=== PATIENT | female | born 2000 | race Caucasian/White ===

== ENCOUNTER 2021-12-11 22:33 | Emergency (ER) | payer MEDICAID ==
[~2021-12-11 22:33] MED LIST: AZIT250T12 PO
[2021-12-11 22:50] VITALS: BP 128/65
--- NOTE | 2021-12-11 23:01 | ED GU-Female ---
General Chief Complaint: OB < 20 WEEKS Stated Complaint: STOMACH PAIN OVIDIO 4 MONTHS Source: patient Exam Limitations: no limitations History of Present Illness Date Seen by Provider: Dec 11, 2021 Time Seen by Provider: 23:01 Initial Comments Patient is a 21-year-old female who presents to the emergency room referred from [facility] chief complaint of lower pelvic pain onset today. She reportedly had a positive test at home 2 or 3 days ago, went to [facility] for the pain this evening and also had a positive test. Patient cannot recall her last menstrual cycle. She thinks she had one last month. She seems significantly mentally impaired. Gives me multiple blank stares when asked questions and looks to her friend for answers. She has not taken anything for the pain. Nothing makes it any better or any worse. She denies nausea or vomiting. No diarrhea. She states she is not having any vaginal bleeding currently. I did ask her if she was still having pain she said no but when I went to palpate the abdomen she told me she was having pain in the suprapubic region. She cannot tell me if her menstrual cycles are regular or not. No prior abdominal surgeries. She tells me she is allergic to secondhand smoke, but does smoke herself. [facility] told her she needed an ultrasound today. All other review of systems reviewed and negative except as stated Timing/Duration: this evening Severity/Quality: mild Location: suprapubic Radiation: none Activities at Onset: none Prior Genitourinary Problems: none Associated Symptoms: denies symptoms Allergies and Home Medications Allergies Coded Allergies: No Known Drug Allergies (Unverified , 07/12/16) Patient Home Medication List Home Medication List Reviewed: Yes Azithromycin (Azithromycin) 250 Mg Tablet, 250 MG PO UD Prescribed by: RAFAEL DUBOIS on 07/12/16 8884 Review of Systems Review of Systems Constitutional: see HPI EENTM: no symptoms reported Respiratory: no symptoms reported Cardiovascular: no symptoms reported Gastrointestinal: no symptoms reported : Yes Musculoskeletal: no symptoms reported Skin: no symptoms reported Psychiatric/Neurological: No Symptoms Reported All Other Systemes Reviewed Negative Unless Noted: Yes Past Kcvmdvv-Vlonmn-Asoqhk Hx Seasonal Allergies Seasonal Allergies: No Past Medical History Reproductive Disorders: No Physical Exam Vital Signs Vital Signs - First Documented 12/11/21 22:50 Temp 36.9 Pulse 83 Resp 18 B/P (MAP) 128/65 (86) Pulse Ox 100 O2 Delivery Room Air Capillary Refill : Height, Weight, BMI Height: 4'9" Weight: 120lbs. oz. 54.074451ev; 25.96 BMI Method:Stated General Appearance: WD/WN, no apparent distress HEENT: PERRL/EOMI Cardiovascular: regular rate, rhythm Respiratory: lungs clear, normal breath sounds, no respiratory distress, no accessory muscle use Gastrointestinal: soft, tenderness (suprapubic) Extremities: normal range of motion, non-tender, normal inspection, no pedal edema, no calf tenderness, normal capillary refill Neurologic/Psychiatric: alert, normal mood/affect, oriented x 3 Skin: normal color, warm/dry Progress/Results/Core Measures Suspected Sepsis SIRS Temperature: Pulse: Respiratory Rate: Laboratory Tests 12/11/21 23:21: White Blood Count 18.3H Blood Pressure / Mean: Laboratory Tests 12/11/21 23:21: Creatinine 0.68, Platelet Count 299 Results/Orders Lab Results Laboratory Tests Test 12/11/21 22:56 12/11/21 23:21 Range/Units Urine Color YELLOW Urine Clarity CLEAR Urine pH 6.0 5-9 Urine Specific [place] >=1.030 1.016-1.022 Urine Protein NEGATIVE NEGATIVE Urine Glucose (UA) NEGATIVE NEGATIVE Urine Ketones NEGATIVE NEGATIVE Urine Nitrite NEGATIVE NEGATIVE Urine Bilirubin NEGATIVE NEGATIVE Urine Urobilinogen 0.2 < = 1.0 MG/DL Urine Leukocyte Esterase NEGATIVE NEGATIVE Urine RBC (Auto) NEGATIVE NEGATIVE Urine RBC NONE /HPF Urine WBC RARE /HPF Urine Squamous Epithelial Cells 0-2 /HPF Urine Crystals NONE /LPF Urine Bacteria TRACE /HPF Urine Casts NONE /LPF Urine Mucus SMALL H /LPF Urine Culture Indicated NO White Blood Count 18.3 H 4.3-11.0 10^3/uL Red Blood Count 3.54 L 3.80-5.11 10^6/uL Hemoglobin 11.6 11.5-16.0 g/dL Hematocrit 33 L 35-52 % Mean Corpuscular Volume 94 80-99 fL Mean Corpuscular Hemoglobin 33 25-34 pg Mean Corpuscular Hemoglobin Concent 35 32-36 g/dL Red Cell Distribution Width 12.9 10.0-14.5 % Platelet Count 299 130-400 10^3/uL Mean Platelet Volume 11.0 9.0-12.2 fL Immature Granulocyte % (Auto) 0 % Neutrophils (%) (Auto) 67 42-75 % Lymphocytes (%) (Auto) 23 12-44 % Monocytes (%) (Auto) 9 0-12 % Eosinophils (%) (Auto) 1 0-10 % Basophils (%) (Auto) 0 0-10 % Neutrophils # (Auto) 12.2 H 1.8-7.8 10^3/uL Lymphocytes # (Auto) 4.2 H 1.0-4.0 10^3/uL Monocytes # (Auto) 1.6 H 0.0-1.0 10^3/uL Eosinophils # (Auto) 0.1 0.0-0.3 10^3/uL Basophils # (Auto) 0.1 0.0-0.1 10^3/uL Immature Granulocyte # (Auto) 0.1 0.0-0.1 10^3/uL Neutrophils % (Manual) 75 % Lymphocytes % (Manual) 15 % Monocytes % (Manual) 5 % Eosinophils % (Manual) 0 % Basophils % (Manual) 0 % Band Neutrophils 0 % Reactive Lymphocytes 5 % Blood Morphology Comment NORMAL Sodium Level 134 L 135-145 MMOL/L Potassium Level 3.5 L 3.6-5.0 MMOL/L Chloride Level 104 98-107 MMOL/L Carbon Dioxide Level 20 L 21-32 MMOL/L Anion Gap 10 5-14 MMOL/L Blood Urea Nitrogen 14 7-18 MG/DL Creatinine 0.68 0.60-1.30 MG/DL Estimat Glomerular Filtration Rate 126 BUN/Creatinine Ratio 21 Glucose Level 99 70-105 MG/DL Calcium Level 9.0 8.5-10.1 MG/DL Human Chorionic Gonadotropin, Quant 78065 H <5 MIU/ML My Orders Orders - NEDRA WEBSTER MD Ed Iv/Invasive Line Start (12/11/21 23:00) Cbc With Automated Diff (12/11/21 23:00) Basic Metabolic Panel (12/11/21 23:00) Urine Bedside (12/11/21 23:00) Ua Culture If Indicated (12/11/21 23:00) Hcg,Quantitative (12/11/21 23:00) Manual Differential (12/11/21 23:21) Vital Signs/I&O 12/11/21 22:50 Temp 36.9 Pulse 83 Resp 18 B/P (MAP) 128/65 (86) Pulse Ox 100 O2 Delivery Room Air Capillary Refill : Progress Note : Time: 00:35 Progress Note I was able to use the ED ultrasound to visualize an IUP. cardiac activity was observed 140s to 150s. Patient is having no vaginal bleeding. I have discussed with her friend at the bedside return precautions. She is going to get her care at [facility]. I have recommended a an [id number]-[id number] vitamin. We will also recommend that she quit smoking. Urine is clean. Rest of her labs are unremarkable except for a leukocytosis which is nonspecific. Departure Impression Primary Impression: Abdominal pain Qualified Codes: R10.30 - Lower abdominal pain, unspecified Additional Impression: Qualified Codes: Z3A.01 - Less than 8 weeks gestation of Disposition: HOME, SELF-CARE Condition: Stable Departure-Patient Inst. Decision time for Depature: 00:36 Referrals: [facility]/Orin SALCIDO,LOCAL PHYSICIAN (PCP) Primary Care Physician Patient Instructions: Abdominal Pain, Adult ED, Symptoms Add. Discharge Instructions: Drink lots of fluids to stay well hydrated - avoid Soda Pop. You need to QUIT smoking. Take an over the counter generic Vitamin every day - at night is the best. Call [facility] tomorrow for an appointment for starting care. Come back to the Emergency Department for vaginal bleeding, worse pain, or any other concerning symptoms. You can take over the counter extra strength tylenol (NOT IBUPROFEN) every 6 hours (2 tablets) for pain. NEDRA WEBSTER MD Dec 11, 2021 23:01
[2021-12-11 23:05] LABS: BILIRUBIN,URINE NEGATIVE (NEGATIVE); CLARITY,URINE CLEAR; COLOR,URINE YELLOW; GLUCOSE, URINE (UA) NEGATIVE (NEGATIVE); KETONES,URINE NEGATIVE (NEGATIVE); LEUKOCYTE ESTERASE ,URINE NEGATIVE (NEGATIVE); NITRITE,URINE NEGATIVE (NEGATIVE); PROTEIN,URINE NEGATIVE (NEGATIVE)
[2021-12-11 23:11] LABS: BACTERIA,URINE TRACE /HPF; SQUAMOUS EPITHELIAL CELL,UR 0-2 /HPF; WBC,URINE RARE /HPF
[2021-12-11 23:28] LABS: BASOPHILS # (AUTO) 0.1 10^3/uL (0.0-0.1); BASOPHILS % (AUTO) 0 % (0-10); EOSINOPHILS # (AUTO) 0.1 10^3/uL (0.0-0.3); EOSINOPHILS % (AUTO) 1 % (0-10); HEMATOCRIT 33 % (35-52); HEMOGLOBIN 11.6 g/dL (11.5-16.0); LYMPHOCYTES # (AUTO) 4.2 10^3/uL (1.0-4.0); LYMPHOCYTES % (AUTO) 23 % (12-44); MEAN CORPUSCULAR HEMOGLOBIN 33 pg (25-34); MEAN CORPUSCULAR HGB CONC 35 g/dL (32-36); MEAN CORPUSCULAR VOLUME 94 fL (80-99); MONOCYTES # (AUTO) 1.6 10^3/uL (0.0-1.0); MONOCYTES % (AUTO) 9 % (0-12); NEUTROPHILS # (AUTO) 12.2 10^3/uL (1.8-7.8); NEUTROPHILS % (AUTO) 67 % (42-75); PLATELET COUNT 299 10^3/uL (130-400); WHITE BLOOD COUNT 18.3 10^3/uL (4.3-11.0)
[2021-12-11 23:39] LABS: BAND NEUTROPHILS 0 %; BASOPHILS % (MANUAL) 0 %; EOSINOPHILS % (MANUAL) 0 %; LYMPHOCYTES % (MANUAL) 15 %; MONOCYTES % (MANUAL) 5 %; NEUTROPHILS % (MANUAL) 75 %; REACTIVE LYMPHOCYTES 5 %
[2021-12-11 23:40] LABS: POTASSIUM 3.5 MMOL/L (3.6-5.0); RBC MORPH NORMAL
[2021-12-11 23:45] LABS: CREATININE SERUM 0.68 MG/DL (0.60-1.30)
== END 2021-12-12 00:46 | disposition home or self-care (01) ==
LOC: EDUNIT# 22:33 → ER 22:38
DX: O26.891 Other specified pregnancy related conditions, first trimester (principal); R10.30 Lower abdominal pain, unspecified; F17.290 Nicotine dependence, other tobacco product, uncomplicated; Z3A.00 Weeks of gestation of pregnancy not specified
CPT/HCPCS: 36415; 80048; 81000; 84702; 84703; 85007; 85027; 99282

== ENCOUNTER 2022-07-28 06:04 | Inpatient (IN) | payer MEDICAID ==
[~2022-07-28] VITALS: Ht 147.5 cm; Wt 63.7 kg
[2022-07-28] VITALS (49 sets, daily range): BP systolic 103–157; BP diastolic 46–94
[2022-07-28] MEDS ORDERED: MINERAL OIL 30 ML UDC TOP PRN (06:30)
[2022-07-28 06:39] LABS: BASOPHILS # (AUTO) 0.1 10^3/uL (0.0-0.1); BASOPHILS % (AUTO) 0 % (0-10); EOSINOPHILS # (AUTO) 0.2 10^3/uL (0.0-0.3); EOSINOPHILS % (AUTO) 1 % (0-10); HEMATOCRIT 32 % (35-52); LYMPHOCYTES # (AUTO) 3.4 10^3/uL (1.0-4.0); LYMPHOCYTES % (AUTO) 20 % (12-44); MEAN CORPUSCULAR HEMOGLOBIN 31 pg (25-34); MEAN CORPUSCULAR HGB CONC 34 g/dL (32-36); MEAN CORPUSCULAR VOLUME 90 fL (80-99); MONOCYTES % (AUTO) 6 % (0-12); NEUTROPHILS # (AUTO) 12.8 10^3/uL (1.8-7.8); NEUTROPHILS % (AUTO) 73 % (42-75); PLATELET COUNT 475 10^3/uL (130-400); WHITE BLOOD COUNT 17.5 10^3/uL (4.3-11.0)
[2022-07-28] MEDS ORDERED: AMPICILLIN FOR IV USE 2,000 MG in NS (IVPB) 50 ML IV SCH (07:00)
[2022-07-28] MEDS: D5 LR IV SOLUTION 1,000 ML IV SCH ×2 (07:43→13:50)
[2022-07-28] MEDS: OXYTOCIN PRE-MIX DRIP 500 ML IV SCH ×4 (08:15→22:33)
--- NOTE | 2022-07-28 08:16 | Labor Progress Note ---
Labor Progress Note Labor Progress Note Date Seen by Provider: Jul 28, 2022 Time Seen by Provider: 08:00 Subjective: Pt denies complaints. Is feeling her contractions but not much pain so far. Objective: Cervical exam: 3.5/80/-2 Consistency: soft Position: anterior Presentation: vertex heart tones: 130 beats per minute, moderate variability, reactive Tocometer: 1-2 ctx/10 minutes Assessment/Plan: Alejandra Solano is a 21 /Para 1/0 ,Gestational Age (wks)39 (days) 6 here for induction of labor due to oligohydramnios and decreased movement. CEFM/TOCO AROM done at time of exam with clear fluid Start pitocin Anesthesia: epidural when desired Anticipate vaginal delivery. Vitals - Labs Vital Signs - I&O Vital Signs Date Time Temp Pulse Resp B/P (MAP) Pulse Ox O2 Delivery O2 Flow Rate FiO2 07/28/22 06:39 36.4 75 18 98 Room Air Labs Laboratory Tests 07/28/22 06:22: White Blood Count 17.5H, Red Blood Count 3.59L, Hemoglobin 11.0L, Hematocrit 32L , Mean Corpuscular Volume 90, Mean Corpuscular Hemoglobin 31, Mean Corpuscular Hemoglobin Concent 34, Red Cell Distribution Width 14.7H, Platelet Count 475H, Mean Platelet Volume 11.0, Immature Granulocyte % (Auto) 1, Neutrophils (%) (Auto) 73, Lymphocytes (%) (Auto) 20, Monocytes (%) (Auto) 6, Eosinophils (%) (Auto) 1, Basophils (%) (Auto) 0, Neutrophils # (Auto) 12.8H, Lymphocytes # (Auto) 3.4, Monocytes # (Auto) 1.0, Eosinophils # (Auto) 0.2, Basophils # (Auto) 0.1, Immature Granulocyte # (Auto) 0.1 RAJEEV RICH MD Jul 28, 2022 08:16
--- NOTE | 2022-07-28 08:18 | History & Physical-OB/GYN ---
JASWANT FREEMAN 07/28/22 0818: OB - Chief Complaint & HPI Date/Time Date of Admission: Date of Admission: Jul 28, 2022 at 06:05 Date seen by a Provider: Jul 28, 2022 Time Seen by a Provider: 07:52 Chief Complaint/History OB-Reason for Admission/Chief: Rupture of Membranes Hx : 1 Hx Para: 0 Expected Date of Delivery: Jul 29, 2022 Gestational Age in Weeks: 39 Gestational Age in Days: 6 Indication for induction: other (US on 07/27 notes Oligohydramnios) History of Labs 02/18/22: A+, antibody neg, RI, HIV/RPR/HepB NR, G/C neg, Chlamydia POS (treated), Trichomonas POS (treated), GBS bacteruria (treated), and elevated risk of DS onpenta screen Allergies and Home Medications Allergies Coded Allergies: No Known Drug Allergies (Unverified , 07/12/16) Patient Home Medication List Home Medication List Reviewed: Yes Azithromycin (Azithromycin) 250 Mg Tablet, 250 MG PO UD Prescribed by: RAFAEL DUBOIS on 07/12/16 5908 OB - History Hx of Present Care: Yes Ultrasounds: Abnormal US findings Abnormal Ultrasound Findings: Oligohydramnios noted on 07/27 Obstetrical Complications: Other (Substance use during , Increased risk for Downs Syndrome on Penta screen, ) Medical Complications: None Other Concerns: Substance use during Increased risk for Downs Syndrome on Penta screen, cell free DNA. Negative for trisomy 21. Abnormal 1 hour GTT and Normal 3 hour GTT Questionable pericardial effusion on US. 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 Obstetrical History Hx : 1 Hx Para: 0 Delivery History Hx Blood Disorders: No Patient Past Medical History ADHD, Cannot read well Social History/Family History Alcohol Use: Denies Use Recreational Drug Use: Yes Smoking Cessation: Current every day smoker 2nd Hand Smoke Exposure: Yes Immunizations Influenza Vaccine Up-to-Date: Yes; Up-to-Date Hepatitis A: Yes Hepatitis B: Yes Tetanus Booster (TDap): Less than 5yrs Rubella: immune RPR/VDRL: Negative GBS Status: Negative HBsAG: Negative OB - Admission Exam Physical Exam Vitals: Vital Signs 07/28/22 06:39 Temp 36.4 Pulse 75 Resp 18 Pulse Ox 98 O2 Delivery Room Air Heart: Rhythm Normal Lungs: Clear Abdomen: Gravid Reflexes: Normal Cervical Dilatation: 3cm Effacement: Other (80%) Heart Rate: 130's Accelerations: Accelerations Present Decelerations: No Decelerations Short Term Variability: Present Devulcanizer Operator Variability: Average (6-25) Contractions on Admission: 6-10 Minutes Apart Mckeon Scoring Tool (Modified) Dilation (cm): 3-4cm (2) Effacement (%): 80-100% (3) Descent/Station: -2 (1) Cervix Consistency: Soft (2) Cervix Position: Anterior (2) Subtract 1 point for: Nulliparity (-1) Mckeon Score: 7 Labs Laboratory Tests Test 07/28/22 06:22 Range/Units White Blood Count 17.5 H 4.3-11.0 10^3/uL Red Blood Count 3.59 L 3.80-5.11 10^6/uL Hemoglobin 11.0 L 11.5-16.0 g/dL Hematocrit 32 L 35-52 % Mean Corpuscular Volume 90 80-99 fL Mean Corpuscular Hemoglobin 31 25-34 pg Mean Corpuscular Hemoglobin Concent 34 32-36 g/dL Red Cell Distribution Width 14.7 H 10.0-14.5 % Platelet Count 475 H 130-400 10^3/uL Mean Platelet Volume 11.0 9.0-12.2 fL Immature Granulocyte % (Auto) 1 % Neutrophils (%) (Auto) 73 42-75 % Lymphocytes (%) (Auto) 20 12-44 % Monocytes (%) (Auto) 6 0-12 % Eosinophils (%) (Auto) 1 0-10 % Basophils (%) (Auto) 0 0-10 % Neutrophils # (Auto) 12.8 H 1.8-7.8 10^3/uL Lymphocytes # (Auto) 3.4 1.0-4.0 10^3/uL Monocytes # (Auto) 1.0 0.0-1.0 10^3/uL Eosinophils # (Auto) 0.2 0.0-0.3 10^3/uL Basophils # (Auto) 0.1 0.0-0.1 10^3/uL Immature Granulocyte # (Auto) 0.1 0.0-0.1 10^3/uL OB - Assessment/Plan/Diagnosis Assessment Assessment: induction of labor Admission Dx Induction of Labor at 39 weeks 6 days gestational age. Plan Plan: Induction Induction Method: AROM Other Plan AROM and Pitocin protocol Problems: (1) Oligohydramnios Qualifiers: Qualified Codes: O41.03X0 - Oligohydramnios, third trimester, not applicable or unspecified (2) Substance abuse affecting , antepartum Assessment & Plan: guest services director consult (3) GBS (group B Streptococcus carrier), +RV culture, currently Assessment & Plan: IV Ampicillin (4) Term Assessment & Plan: Induction of labor via AROM and Pitocon protocol (5) Decreased movement Qualifiers: Qualified Codes: O36.8130 - Decreased movements, third trimester, not applicable or unspecified Supervisory-Addendum Brief Verification & Attestation Participated in pt care: history, physical Personally performed: exam, history, MDM, supervision of care Care discussed with: Medical Student Procedures: supervised RAJEEV RICH MD 07/28/22 1739: Allergies and Home Medications Allergies Coded Allergies: No Known Drug Allergies (Unverified , 07/12/16) Patient Home Medication List Azithromycin (Azithromycin) 250 Mg Tablet, 250 MG PO UD Prescribed by: RAFAEL DUBOIS on 07/12/16 1624 OB - Assessment/Plan/Diagnosis Assessment Admission Status: Inpatient Order (span 2 midnights) Reason for Inpatient Admission: Labor, delivery and course Supervisory-Addendum Brief Verification & Attestation I personally saw and examined patient and did my own history and exam which confirmed the findings documented by the medical student. 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 Negative on admit. JASWANT FREEMAN Jul 28, 2022 08:18 RAJEEV RICH MD Jul 28, 2022 17:39
[2022-07-28] MEDS ORDERED: fentaNYL 2 mcg/ml BUPIVA 0.125 100 ML ONE (09:07)
[2022-07-28] MEDS ORDERED: LACTATED RINGERS 1,000 ML IV ONE (09:07)
[2022-07-28] MEDS ORDERED: fentaNYL INJ 100 MCG/2 ML AMP ONE (09:24)
[2022-07-28] MEDS ORDERED: BUPIVACAINE 0.25% 30 ML (SENSORCAINE) VIAL ONE (09:24)
[2022-07-28] MEDS ORDERED: NALOXONE 0.4 MG/ML 1 ML (NARCAN) VIAL IV PRN (10:00)
[2022-07-28] MEDS ORDERED: LACTATED RINGERS 1,000 ML IV SCH (10:00)
[2022-07-28] MEDS ORDERED: diphenhydrAMINE 50 MG/ML INJ (BENADRYL) IV PRN (10:00)
[2022-07-28] MEDS ORDERED: fentaNYL 2 mcg/ml BUPIVA 0.125 100 ML EPI SCH (10:00)
[2022-07-28] MEDS ORDERED: ONDANSETRON 4 MG/2 ML (SDV) Z0FRAN IV PRN (10:00)
[2022-07-28] MEDS ORDERED: AMPICILLIN FOR IV USE 1,000 MG in NS (IVPB) 50 ML IV SCH (11:00)
[2022-07-28 12:10] LABS: AMPHETAMINE SCREEN, URINE NEGATIVE (NEGATIVE); BARBITURATE SCREEN URINE NEGATIVE (NEGATIVE); BENZODIAZEPINES SCREEN URINE NEGATIVE (NEGATIVE); CANNABINOID SCREEN, URINE POSITIVE (NEGATIVE); COCAINE SCREEN URINE NEGATIVE (NEGATIVE); METHADONE STAT NEGATIVE (NEGATIVE); OPIATE SCREEN URINE NEGATIVE (NEGATIVE); OXYCODONE STAT NEGATIVE (NEGATIVE); PROPOXYPHENE STAT NEGATIVE (NEGATIVE); TRICYCLIC ANTIDEPRESSANTS SCRE NEGATIVE (NEGATIVE)
--- NOTE | 2022-07-28 12:56 | Labor Progress Note ---
Labor Progress Note Labor Progress Note Date Seen by Provider: Jul 28, 2022 Time Seen by Provider: 12:40 Subjective: Pt denies complaints. Sleeping after getting epidural. Objective: Cervical exam: Consistency: soft Position: anterior Presentation: vertex heart tones: 130 beats per minute, moderate variability Tocometer: 5 ctx/10 minutes Assessment/Plan: Alejandra Solano is a (21 /Para 1 / 0,Gestational Age (wks)39 here for IOL for oligohydramnios and DFM. Having variable decelerations, at time of my entering room to talk to her started to have prolonged bradycardia, with brief periods of normal FHR with rapid drop back to as low as 90s. Position change, pitocin stopped and fluid bolus started. FSE placed and heart rate returned to 130s with moderate variability. FSE/TOCO Hold pitocin and monitor for continued cervical change Anesthesia: Epidural Anticipate vaginal delivery. Vitals - Labs Vital Signs - I&O Vital Signs Date Time Temp Pulse Resp B/P (MAP) Pulse Ox O2 Delivery O2 Flow Rate FiO2 07/28/22 11:57 36.0 81 18 139/65 (89) 100 Room Air 07/28/22 11:42 56 18 132/77 (95) 99 Room Air 07/28/22 11:27 68 18 147/78 (101) 97 Room Air 07/28/22 11:10 63 18 134/85 (101) Room Air 07/28/22 10:38 56 18 121/68 (85) 99 Room Air 07/28/22 10:34 58 18 132/55 (80) 99 Room Air 07/28/22 10:28 61 18 117/56 (76) 100 Room Air 07/28/22 10:23 64 18 115/65 (82) 99 Room Air 07/28/22 10:18 60 18 115/67 (83) Room Air 07/28/22 10:13 57 18 114/58 (76) 100 Room Air 07/28/22 10:07 69 18 130/60 (83) 99 Room Air 07/28/22 10:05 98 18 147/87 (107) Room Air 07/28/22 10:00 68 18 134/62 (86) 99 Room Air 07/28/22 09:58 62 18 140/58 (85) 99 Room Air 07/28/22 09:54 73 18 142/71 (94) 100 Room Air 07/28/22 09:51 74 18 138/64 (88) Room Air 07/28/22 09:48 85 18 138/61 (86) Room Air 07/28/22 09:45 79 18 157/74 (101) 99 Room Air 07/28/22 09:42 84 18 148/94 (112) Room Air 07/28/22 09:39 77 18 145/88 (107) 99 Room Air 07/28/22 09:36 79 18 146/89 (108) 100 Room Air 07/28/22 09:33 75 18 142/78 (99) Room Air 07/28/22 09:30 84 18 144/77 (99) 100 Room Air 07/28/22 09:18 86 18 156/70 (98) Room Air 07/28/22 09:02 64 18 154/72 (99) Room Air 07/28/22 08:47 73 18 138/65 (89) Room Air 07/28/22 08:33 66 18 157/71 (99) Room Air 07/28/22 08:18 36.4 80 18 142/94 (110) Room Air 07/28/22 06:39 36.4 75 18 98 Room Air Labs Laboratory Tests 07/28/22 06:22: White Blood Count 17.5H, Red Blood Count 3.59L, Hemoglobin 11.0L, Hematocrit 32L , Mean Corpuscular Volume 90, Mean Corpuscular Hemoglobin 31, Mean Corpuscular Hemoglobin Concent 34, Red Cell Distribution Width 14.7H, Platelet Count 475H, Mean Platelet Volume 11.0, Immature Granulocyte % (Auto) 1, Neutrophils (%) (Auto) 73, Lymphocytes (%) (Auto) 20, Monocytes (%) (Auto) 6, Eosinophils (%) (Auto) 1, Basophils (%) (Auto) 0, Neutrophils # (Auto) 12.8H, Lymphocytes # (Auto) 3.4, Monocytes # (Auto) 1.0, Eosinophils # (Auto) 0.2, Basophils # (Auto) 0.1, Immature Granulocyte # (Auto) 0.1, Urine Opiates Screen NEGATIVE, Urine Oxycodone Screen NEGATIVE, Urine Methadone Screen NEGATIVE, Urine Propoxyphene Screen NEGATIVE, Urine Barbiturates Screen NEGATIVE, Ur Tricyclic Antidepressants Screen NEGATIVE, Urine Phencyclidine Screen NEGATIVE, Urine Amphetamines Screen NEGATIVE, Urine Methamphetamines Screen NEGATIVE, Urine Benzodiazepines Screen NEGATIVE, Urine Cocaine Screen NEGATIVE, Urine Cannabinoids Screen POSITIVE RAJEEV RICH MD Jul 28, 2022 12:56
[2022-07-28] MEDS ORDERED: CATHETER FLUSH 10 ML SYR IV SCH (14:00)
[2022-07-28] MEDS ORDERED: LIDOCAINE/EPI 2% 1:200,00 (XYLOCAINE) 10 ML VIAL ONE (15:06)
--- NOTE | 2022-07-28 15:29 | OB Labor & Delivery Record ---
Vag Delivery Note Vag Delivery Note Date of Delivery: 07/28/22 Preoperative Diagnosis: Alejandra Solano is a (21 /Para 1 / 0, Gestational Age (wks)39with 6 days, oligohydramnios and decreased movement Postoperative Diagnosis: Same Surgeon: RAJEEV RICH Associate Programmer: Salina Contreras, OMS3 Anesthesia: Epidural Delivery Type: Findings: Viable male , apgars pending, weight pending Lacerations: right periurethral abrasion, left periurethral laceration Intact placenta with 3 vessel cord. Nuchal cord x 1 delivered through, shoulder dystocia, see notes Estimated Blood Loss: 250 ml Complications: None Condition: Stable Description of Procedure: The patient is a 21 year old female who presented for induction of labor for oligohydramnios and decreased movement. She was admitted and informed consent was obtained. Her labor course was remarkable for recurrent prolonged decelerations and rapid active phase. She progressed to complete dilatation and began to push. She was then set up for delivery. The 's head was delivered atraumatically in the ALLYN position. Nuchal cord x 1 noted, anterior shoulder did not deliver immediately, McRobert's positioning used without success, suprapubic pressure from maternal left applied and the anterior shoulder was delivered. The posteri or shoulder and remainder of the 's body were then delivered without difficulty. Upon delivery, the was placed on maternal abdomen. The cord was doubly clamped and cut and the infant was handed off to the pediatric staff. As medical student was delivering placenta, the cord avulsed, I immediately reached into the vagina and placenta was present in vaginal vault and removed intact. An intact placenta with 3-vessel cord delivered via Niurka and there was found to be minimal bleeding.~ Vigorous fundal massage was performed and the fundus was found to be firm. IV oxytocin was given. Examination of the vagina and perineum revealed a left periurethral laceration repaired in the usual fashion with 3-0 vicryl rapide suture. Following the repair, sponge, instrument and needle counts were correct. Mom and baby were both in stable condition in the labor suite. Vitals - Labs Vital Signs - I&O Vital Signs Date Time Temp Pulse Resp B/P (MAP) Pulse Ox O2 Delivery O2 Flow Rate FiO2 07/28/22 13:04 36.0 07/28/22 12:42 73 18 149/83 (105) 99 Room Air 07/28/22 12:12 70 18 132/73 (92) 100 Room Air 07/28/22 11:57 36.0 81 18 139/65 (89) 100 Room Air 07/28/22 11:42 56 18 132/77 (95) 99 Room Air 07/28/22 11:27 68 18 147/78 (101) 97 Room Air 07/28/22 11:10 63 18 134/85 (101) Room Air 07/28/22 10:38 56 18 121/68 (85) 99 Room Air 07/28/22 10:34 58 18 132/55 (80) 99 Room Air 07/28/22 10:28 61 18 117/56 (76) 100 Room Air 07/28/22 10:23 64 18 115/65 (82) 99 Room Air 07/28/22 10:18 60 18 115/67 (83) Room Air 07/28/22 10:13 57 18 114/58 (76) 100 Room Air 07/28/22 10:07 69 18 130/60 (83) 99 Room Air 07/28/22 10:05 98 18 147/87 (107) Room Air 07/28/22 10:00 68 18 134/62 (86) 99 Room Air 07/28/22 09:58 62 18 140/58 (85) 99 Room Air 07/28/22 09:54 73 18 142/71 (94) 100 Room Air 07/28/22 09:51 74 18 138/64 (88) Room Air 07/28/22 09:48 85 18 138/61 (86) Room Air 07/28/22 09:45 79 18 157/74 (101) 99 Room Air 07/28/22 09:42 84 18 148/94 (112) Room Air 07/28/22 09:39 77 18 145/88 (107) 99 Room Air 07/28/22 09:36 79 18 146/89 (108) 100 Room Air 07/28/22 09:33 75 18 142/78 (99) Room Air 07/28/22 09:30 84 18 144/77 (99) 100 Room Air 07/28/22 09:18 86 18 156/70 (98) Room Air 07/28/22 09:02 64 18 154/72 (99) Room Air 07/28/22 08:47 73 18 138/65 (89) Room Air 07/28/22 08:33 66 18 157/71 (99) Room Air 07/28/22 08:18 36.4 80 18 142/94 (110) Room Air 07/28/22 06:39 36.4 75 18 98 Room Air Labs Laboratory Tests 07/28/22 06:22: White Blood Count 17.5H, Red Blood Count 3.59L, Hemoglobin 11.0L, Hematocrit 32L , Mean Corpuscular Volume 90, Mean Corpuscular Hemoglobin 31, Mean Corpuscular Hemoglobin Concent 34, Red Cell Distribution Width 14.7H, Platelet Count 475H, Mean Platelet Volume 11.0, Immature Granulocyte % (Auto) 1, Neutrophils (%) (Auto) 73, Lymphocytes (%) (Auto) 20, Monocytes (%) (Auto) 6, Eosinophils (%) ( Auto) 1, Basophils (%) (Auto) 0, Neutrophils # (Auto) 12.8H, Lymphocytes # (Auto) 3.4, Monocytes # (Auto) 1.0, Eosinophils # (Auto) 0.2, Basophils # (Auto) 0.1, Immature Granulocyte # (Auto) 0.1, Urine Opiates Screen NEGATIVE, Urine Ox ycodone Screen NEGATIVE, Urine Methadone Screen NEGATIVE, Urine Propoxyphene Screen NEGATIVE, Urine Barbiturates Screen NEGATIVE, Ur Tricyclic Antidepressants Screen NEGATIVE, Urine Phencyclidine Screen NEGATIVE, Urine Amphetamines Screen NEGATIVE, Urine Methamphetamines Screen NEGATIVE, Urine Benzodiazepines Screen NEGATIVE, Urine Cocaine Screen NEGATIVE, Urine Cannabin oids Screen POSITIVEH Shoulder Dystocia Note Shoulder Dystocia Start Time of Delivery of HEAD: 14:56 Time shoulder dystocia called: 14:56 Time of delivery of BODY: 14:57 Positional Maneuvers Pinky, Suprapubic: Left RAJEEV RICH MD Jul 28, 2022 15:28
[2022-07-28] MEDS ORDERED: LIDOCAINE/EPI 2% 1:200,00 (XYLOCAINE) 10 ML VIAL INJ PRN (18:00)
[2022-07-28] MEDS: ONDANSETRON 4 MG/2 ML (SDV) Z0FRAN IVP PRN (19:37)
[2022-07-28] MEDS: IBUPROFEN 600 MG (MOTRIN) TAB PO SCH (19:56)
[2022-07-29 01:11] VITALS: BP 120/67
[2022-07-29] MEDS: IBUPROFEN 600 MG (MOTRIN) TAB PO SCH ×2 (01:13→12:12)
[2022-07-29 05:01] VITALS: BP 120/62
[2022-07-29 06:21] LABS: BASOPHILS # (AUTO) 0.1 10^3/uL (0.0-0.1); BASOPHILS % (AUTO) 0 % (0-10); EOSINOPHILS % (AUTO) 0 % (0-10); HEMATOCRIT 28 % (35-52); HEMOGLOBIN 9.4 g/dL (11.5-16.0); LYMPHOCYTES # (AUTO) 2.9 10^3/uL (1.0-4.0); LYMPHOCYTES % (AUTO) 12 % (12-44); MEAN CORPUSCULAR HEMOGLOBIN 31 pg (25-34); MEAN CORPUSCULAR HGB CONC 34 g/dL (32-36); MEAN CORPUSCULAR VOLUME 90 fL (80-99); MEAN PLATELET VOLUME 11.1 fL (9.0-12.2); MONOCYTES # (AUTO) 1.2 10^3/uL (0.0-1.0); MONOCYTES % (AUTO) 5 % (0-12); NEUTROPHILS % (AUTO) 82 % (42-75); PLATELET COUNT 427 10^3/uL (130-400); WHITE BLOOD COUNT 24.3 10^3/uL (4.3-11.0)
[2022-07-29] MEDS ORDERED: PRENATAL VITAMIN 1 EA TAB PO SCH (07:00)
[2022-07-29] MEDS ORDERED: FERR-74 PO (07:11)
[2022-07-29] MEDS ORDERED: IBUP-844 PO (07:11)
--- NOTE | 2022-07-29 07:11 | Short Stay Summary ---
Discharge Summary Hospital Course Problems/Dx: (1) Status post vaginal delivery Assessment & Plan: 39w6d following IOL for oligo. Routine care. Infant will be adopted by maternal aunt. Elevated wbc throughout and at labor and post delivery without signs of infection; likely inflammatory process. hx of Chlamydia and trich during with negative SWEETIE Penta screen increased risk for Down Syndrome with negative DNA testing. Hb decreased from 11 to 9.4 - start iron for acute blood loss anemia. (2) Term Assessment & Plan: Induction of labor via AROM and Pitocon protocol (3) Substance abuse affecting , antepartum Status: Resolved Assessment & Plan: manager managed backup services consult (4) Oligohydramnios Status: Resolved Qualifiers: Qualified Codes: O41.03X0 - Oligohydramnios, third trimester, not applicable or unspecified (5) GBS (group B Streptococcus carrier), +RV culture, currently Assessment & Plan: IV Ampicillin (6) Decreased movement Status: Resolved Qualifiers: Qualified Codes: O36.8130 - Decreased movements, third trimester, not applicable or unspecified Final Diagnosis: see Problem List Hospital Course Date of Admission: Jul 28, 2022 at 06:05 Date of Discharge: 07/29/22 Labs and Pending Lab Test: Laboratory Tests 07/29/22 05:53: White Blood Count 24.3H, Red Blood Count 3.08L, Hemoglobin 9.4L, Hematocrit 28L, Mean Corpuscular Volume 90, Mean Corpuscular Hemoglobin 31, Mean Corpuscular Hemoglobin Concent 34, Red Cell Distribution Width 14.9H, Platelet Count 427H, Mean Platelet Volume 11.1, Immature Granulocyte % (Auto) 1, Neutrophils (%) (Auto) 82H, Lymphocytes (%) (Auto) 12, Monocytes (%) (Auto) 5, Eosinophils (%) (Auto) 0, Basophils (%) (Auto) 0, Neutrophils # (Auto) 20.0H, Lymphocytes # (Auto) 2.9, Monocytes # (Auto) 1.2H, Eosinophils # (Auto) 0.0, Basophils # (Auto) 0.1, Immature Granulocyte # (Auto) 0.2H Home Meds Active No Active Prescriptions or Reported Medications Assessment/Pt Instructions Follow up with Dr. Davis in [place] in 1-2 weeks. Discharge Instructions Discharge Diet: No Restrictions Discharge Physical Examination General Appearance: Alert, Oriented X3, Cooperative Psych/Mental Status: Mental Status NL, Mood NL Allergies: Coded Allergies: No Known Drug Allergies (Unverified , 07/12/16) Discharge Summary Date of Admission Jul 28, 2022 at 06:05 Date of Discharge Discharge Diagnosis (1) Oligohydramnios Status: Resolved Qualifiers: Qualified Codes: O41.03X0 - Oligohydramnios, third trimester, not applicable or unspecified (2) Substance abuse affecting , antepartum Status: Resolved Assessment & Plan: manager managed backup services consult (3) GBS (group B Streptococcus carrier), +RV culture, currently Assessment & Plan: IV Ampicillin (4) Term Assessment & Plan: Induction of labor via AROM and Pitocon protocol (5) Decreased movement Status: Resolved Qualifiers: Qualified Codes: O36.8130 - Decreased movements, third trimester, not applicable or unspecified ANGELIKA SCRUGGS DO Jul 29, 2022 07:11
[2022-07-29] MEDS: ONDANSETRON 4 MG/2 ML (SDV) Z0FRAN IVP PRN (07:28)
[2022-07-29 08:00] VITALS: BP 127/70
[2022-07-29 12:00] VITALS: BP 137/70
[2022-07-29] MEDS ORDERED: BENZOCAINE/MENTHOL (DERMOPLAST) 56 ML CAN TP PRN (12:30)
[2022-07-29] MEDS ORDERED: WITCH HAZEL(TUCKS) 40 EA JAR TOP PRN (12:30)
[2022-07-29 14:00] VITALS: BP 137/70
--- NOTE | 2022-07-30 07:25 | Anesthesia-Regional Post-Op ---
Regional Patient Condition Mental Status: Alert, Oriented x3 Circulation: Same as Pre-Op Headache: Absent Sensation: Full Recovery Motor Block: Absent Post Op Complications Complications None Follow Up Care/Instructions Patient Instructions None needed. Anesthesia/Patient Condition Post-dated progress note: Patient was already discharged to home yesterday during my postop rounds approximately 1430. Nursing staff stated she was ambulating and doing well, no complaints, stable vital signs, no apparent adverse anesthesia problems prior to her discharge to home. No complications reported per nursing. CELESTINO SINHA DO Jul 30, 2022 07:24
== END 2022-07-29 14:00 | disposition home or self-care (01) | DRG 806 ==
LOC: LDRP 06:05
PROVIDERS: ADMIT Family Medicine; ATTEND Family Medicine
PROC: 10E0XZZ Delivery of Products of Conception, External Approach (ICD-10-PCS; principal; 2022-07-28)
PROC: 10907ZC Drainage of Amniotic Fluid, Therapeutic from Products of Conception, Via Natural or Artificial Opening (ICD-10-PCS; 2022-07-28)
PROC: 3E033VJ Introduction of Other Hormone into Peripheral Vein, Percutaneous Approach (ICD-10-PCS; 2022-07-28)
PROC: 0UQMXZZ Repair Vulva, External Approach (ICD-10-PCS; 2022-07-28)
DX: O36.8130 Decreased fetal movements, third trimester, not applicable or unspecified (principal); O41.03X0 Oligohydramnios, third trimester, not applicable or unspecified; Z37.0 Single live birth; O99.324 Drug use complicating childbirth; O98.82 Other maternal infectious and parasitic diseases complicating childbirth; O99.334 Smoking (tobacco) complicating childbirth; F17.210 Nicotine dependence, cigarettes, uncomplicated; Z3A.39 39 weeks gestation of pregnancy; F12.90 Cannabis use, unspecified, uncomplicated; O99.824 Streptococcus B carrier state complicating childbirth; D72.829 Elevated white blood cell count, unspecified; O69.81X0 Labor and delivery complicated by cord around neck, without compression, not applicable or unspecified; O71.82 Other specified trauma to perineum and vulva
CPT/HCPCS: 36415; 80306; 85025; 86780; 86850; 86900; 86901